=== PATIENT | male | born 1985 | race Caucasian/White ===

== ENCOUNTER 2020-07-14 08:00 | Outpatient (CLI) | payer OTHER, SELFPAY | END 2020-07-14 08:01 | disposition home or self-care (01) | LOC: SLEEP 01-13 10:26 | PROVIDERS: PCP Emergency Medicine Emergency Medical Services; Visit Provider Internal Medicine Pulmonary Disease | DX: J45.909 Unspecified asthma, uncomplicated (principal) | CPT/HCPCS: 36415; 82103; 82785; 85025; 86003 ==

== ENCOUNTER 2020-10-17 12:52 | Outpatient (CLI) | payer OTHER, SELFPAY ==
--- NOTE | 2020-10-17 13:00 | MR_ITS ---
WS: [id number] MRI RIGHT SHOULDER HISTORY: CHRONIC RIGHT SHOULDER PAIN COMPARISON: None available. TECHNIQUE: Multiplanar sequences of the shoulder joint are submitted. Very mild AC joint hypertrophy. No significant degenerative change. Moderate encroachment upon the mei praspinatus muscle by the distal clavicle. No subacromial or subdeltoid bursal fluid. No os acromion. Biceps tendon is in normal position. No atrophy of the rotator cuff. There is no edema or rotator cuff tear. Glenohumeral joint is normal position. No labral tear. MR/MR shoulder RT wo con* [id number] IMPRESSION: 1. Moderate encroachment upon the supraspinatus muscle by the distal clavicle. No significant arthritis at the AC joint. 2. No rotator cuff tear.
--- NOTE | 2020-10-17 13:45 | MR_ITS ---
WS: [id number] MRI CERVICAL SPINE NONCONTRAST HISTORY: CHRONIC PAIN TO NECK COMPARISON: None available. Technique: Multiplanar, multisequence noncontrast imaging of the cervical spine. Normal posterior alignment. No acute fractures. Mild narrowing of the disc spaces at C4-5 and C5-6. Signal within the cervical cord is normal. Visualized posterior fossa is unremarkable. Craniocervical junction, C1 and C2 relationship, odontoid process and soft tissues are normal. C2-C3: Normal. C3-C4: Normal. C4-C5: Mild annular disc bulging with moderate-sized disc osteophyte complex extending into the LEFT foramen. Smaller osteophyte on the RIGHT. Mild central and LEFT foraminal stenosis. C5-C6: Moderate annular disc bulging and osteophytic ridging. Disc osteophyte complexes resulting in moderate central and bilateral foraminal stenosis. Mild bilateral facet disease. C6-C7: Mild annular disc bulging and foraminal osteophytosis. Very mild central and bilateral foramin al stenosis. C7-T1: Normal. Paraspinal soft tissue are normal. MR/MR cervical spin wo con* [id number] IMPRESSION: 1. Moderate central and bilateral foraminal stenosis at C5-6 due to disc osteo phyte disease. 2. Mild central and LEFT foraminal stenosis at C4-5 due to disc osteophyte dis ease. 3. Mild central and bilateral foraminal stenosis at C6-7 due to disc osteophyt e disease.
== END 2020-10-17 12:53 | disposition home or self-care (01) ==
LOC: RADSHAW 12:57
PROVIDERS: PCP Emergency Medicine Emergency Medical Services; Visit Provider Family Medicine
DX: M54.2 Cervicalgia (principal); G89.29 Other chronic pain; M25.511 Pain in right shoulder; M48.02 Spinal stenosis, cervical region; M25.78 Osteophyte, vertebrae
CPT/HCPCS: 72141; 73221

== ENCOUNTER → 2020-12-01 08:17 | Outpatient (BNVA) | payer OTHER, SELFPAY | PROVIDERS: PCP Emergency Medicine Emergency Medical Services; Referring Provider Emergency Medicine Emergency Medical Services; Visit Provider Specialist | DX: M25.511 Pain in right shoulder (principal); M54.2 Cervicalgia | CPT/HCPCS: 73030 ==

== ENCOUNTER → 2020-12-04 08:49 | Outpatient (BNVA) | payer OTHER, SELFPAY | PROVIDERS: PCP Emergency Medicine Emergency Medical Services; Visit Provider Orthopaedic Surgery | DX: M54.2 Cervicalgia (principal); M25.78 Osteophyte, vertebrae | CPT/HCPCS: 72050 ==

== ENCOUNTER → 2020-12-08 08:56 | Outpatient (BNVA) | payer OTHER, SELFPAY | PROVIDERS: PCP Emergency Medicine Emergency Medical Services; Referring Provider Emergency Medicine Emergency Medical Services; Visit Provider Anesthesiology Pain Medicine | DX: G89.29 Other chronic pain (principal); M54.2 Cervicalgia; M79.621 Pain in right upper arm | CPT/HCPCS: 99205 ==

== ENCOUNTER → 2020-12-15 14:42 | Outpatient (BNVA) | payer OTHER, SELFPAY | PROVIDERS: PCP Emergency Medicine Emergency Medical Services; Visit Provider Anesthesiology Pain Medicine | DX: G89.29 Other chronic pain (principal); M54.2 Cervicalgia; Z87.891 Personal history of nicotine dependence | CPT/HCPCS: 62321; J1100 ==

== ENCOUNTER → 2021-01-01 10:21 | Outpatient (BNVA) | payer OTHER, SELFPAY | PROVIDERS: PCP Emergency Medicine Emergency Medical Services; Visit Provider Anesthesiology Pain Medicine | DX: G89.29 Other chronic pain (principal); M47.812 Spondylosis without myelopathy or radiculopathy, cervical region; M79.601 Pain in right arm; Z87.891 Personal history of nicotine dependence | CPT/HCPCS: 99214 ==